=== PATIENT | male | born 1945 | race Caucasian/White ===

== ENCOUNTER → 2017-09-26 15:01 | Outpatient (CLI) | payer MEDICARE, OTHER, SELFPAY ==
--- NOTE | 2017-09-26 15:12 | RAD_ITS ---
STUDY: X-RAY - ABDOMEN/PELVIS REASON FOR EXAM: Male, 72 years old. Lower abdominal pain TECHNIQUE: 4 views COMPARISON: None. FINDINGS: Normal visualized lung bases. There is an unremarkable bowel gas pattern. There is no demonstrated free abdominal air. The visualized liver, spleen and kidneys are grossly normal in size and morphology. Normal soft tissue structures. Mild degenerative vertebral changes. RAD/Abd Inc Decub and/or Erect IMPRESSION: Normal x-ray examination of the abdomen and pelvis. Electronically Signed: Alek Martinez DO at 23:54 EST Tel [phone], Service support ,
== END ==
PROVIDERS: Family Provider Internal Medicine; PCP Internal Medicine; Visit Provider Nurse Practitioner Gerontology
DX: R10.30 Lower abdominal pain, unspecified (principal)
CPT/HCPCS: 74019

== ENCOUNTER → 2018-11-30 15:56 | Outpatient (CLI) | payer MEDICARE, OTHER, SELFPAY ==
[2016-03-17 15:22] VITALS: BMI 31.6
--- NOTE | 2018-11-30 12:16 | COLBX_PTH ---
PATIENT: CHASE YOUNG LOC: [facility] U#:[id number] AGE/SX: 80/M ROOM: RE11/30/[address]: Dr. Silverio Castillo MD : 1945 BED: DIS: SPEC #: [id number] RECD: 11/30/18 15:20 STATUS: MONCHO DEL #: [id number] CORDELIA: 11/30/18 12:[address]: Silverio Castillo DEPT: SURGICAL PATHOLOGY RECD BY: Juan Carlos Fontana ENTERED: 12/03/18 09:17 SP TYPE: COLON BX MEAGAN DR: Dr. Yumiko Clark, [facility] Tissues: A - Sigmoid colon biopsy B - Ascending colon Procedures: Surgery Specimen Level IV HEADER OPERATION: Colonoscopy with polypectomy PRE-OP DIAGNOSIS: History colon polyps TISSUE SUBMITTED: A - Sigmoid polyp 30 cm, rule out adenoma, B - Mid ascending colon polyps, rule out adenoma MICROSCOPIC DIAGNOSIS A. Sigmoid polyp, 30 cm, polypectomy: Tubular adenoma. B. Mid ascending colon polyps, polypectomy: Fragments of tubular adenoma. JOHN:ebenezer 12/04/18 MICROSCOPIC DESCRIPTION Slides are reviewed. GROSS DESCRIPTION A - Received in fixative is one container labeled with the patient's name and designated sigmoid polyp at 30 cm. The specimen consists of a guzman-pink polyp measuring 0.5 x 0.5 x 0.3 cm. The specimen is totally submitted in one cassette. B - Received in fixative is one container labeled with the patient's name and designated mid ascending colon polyp. The specimen consists of multiple irregular fragments of light guzman soft tissue that in aggregate measure 0.6 x 0.3 x 0.1 cm. The specimen is totally submitted in one cassette. / JOHN:ebenezer 12/03/18 TC:[address] [facility]: [id number] x2
== END ==
PROVIDERS: Family Provider Internal Medicine; PCP Internal Medicine; Referring Provider Internal Medicine Gastroenterology; Visit Provider Internal Medicine Gastroenterology
DX: Z86.010 Personal history of colon polyps (principal)
CPT/HCPCS: 88305

== ENCOUNTER → 2018-12-12 16:15 | Outpatient (CLI) | payer MEDICARE, OTHER, SELFPAY ==
[2018-12-12 17:37] LABS: Absolute Lymphocyte Count 1.15 X10^3/ul (0.83-4.51); Absolute Neutrophil Count 3.8 X10^3/uL (2.0-7.7); Basophil# 0.02 X10^3/uL; Basophil% 0.3 % (0-1); Eosinophil# 0.09 X10^3/uL; Eosinophils% 1.6 % (0-5); Hematocrit 40.8 % (40-54); Hemoglobin 13.7 g/dl (13.0-16.5); Lymphocyte # 1.15 X10^3/ul (4.0); Lymphocyte % 19.9 % (19-41); Mean Corp Hgb Conc 33.6 g/gl (32-36); Mean Corpuscular Hgb 29.8 pg (27.0-32.0); Mean Corpuscular Volume 88.9 fL (80-94); Monocyte# 0.67 X10^3/uL; Monocyte% 11.6 % (0-10); Neutrophil # 3.83 X10^3/uL (2.7-7.7); Neutrophil % 66.4 % (47-70); Platelet Count 246 K/mm3 (150-450); RBC Distribution Width CV 14.5 % (11.6-14.6); RBC Distribution Width SD 46.6 fl (35.1-43.9); Red Blood Count 4.59 M/mm3 (4.6-6.2); White Blood Count 5.8 K/mm3 (4.4-11.0)
[2018-12-12 18:03] LABS: POSITIVE COUNT NO; POSITIVE DIFFERENTIAL NO; POSITIVE MORPHOLOGY NO
== END ==
PROVIDERS: Family Provider Internal Medicine; PCP Internal Medicine; Referring Provider Internal Medicine; Visit Provider Internal Medicine
DX: D73.5 Infarction of spleen (principal)
CPT/HCPCS: 36415; 85025

== ENCOUNTER → 2018-12-14 15:33 | Outpatient (CLI) | payer MEDICARE, OTHER, SELFPAY ==
[2016-03-17 15:22] VITALS: BMI 31.6
--- NOTE | 2018-12-14 | IMM_PTH ---
PATIENT: CHASE YOUNG LOC: [facility] U#:[id number] AGE/SX: 80/M ROOM: RE12/14/[address]: Dr. Silverio Castillo MD : 1945 BED: DIS: SPEC #: [id number] RECD: 12/18/18 12:21 STATUS: MONCHO DEL #: [id number] CORDELIA: 12/14/18 00:[address]: Silverio Castillo DEPT: IMMUNOHISTOCHEMISTRY RECD BY: Zoey Rain ENTERED: 12/18/18 12:22 SP TYPE: IMMUNO OTHR DR: Dr. Yumiko Clark, DO Tissues: Stomach, NOS Procedures: H Pylori (initial) PHYSICIAN & INSTITUTION [place] [address] SPECIMEN INFORMATION: Tissue Source: Gastric antrum body Clinical Info: GERD Specimen Number: [id number] CPT code: 27992 METHODOLOGY: Deparaffinized sections of prefer/formalin-fixed tissue or PAP/DQ stained slides are incubated with monoclonal/polyclonal antibodies/oligonucleotide probes. Localization is made via biotin free immunoperoxidase method. Appropriate controls are performed and reacted as expected. Results on target cell population are indicated in the following table: RESULTS: ANTIBODY / CLONE RESULT H Pylori (polyclonal) positive These tests were developed and their performance characteristics determined by [facility]. They may not have been cleared or approved by the U.S. Food and Drug Administration. The FDA has determined that such clearance or approval is not necessary. INTERPRETATION: Gastric antrum/body, biopsy: Positive for abundant Helicobacter pylori organisms. AM:ebenezer 12/19/18
--- NOTE | 2018-12-14 08:18 | EGD_PTH ---
PATIENT: CHASE YOUNG LOC: [facility] U#:[id number] AGE/SX: 80/M ROOM: RE12/14/[address]: Dr. Silverio Castillo MD : 1945 BED: DIS: SPEC #: [id number] RECD: 12/14/18 15:21 STATUS: MONCHO DEL #: [id number] CORDELIA: 12/14/18 08:[address]: Silverio Castillo DEPT: SURGICAL PATHOLOGY RECD BY: Juan Carlos Fontana ENTERED: 12/17/18 10:23 SP TYPE: EGD BIOPSY OTHR DR: Dr. Yumiko Clark, DO [facility] Tissues: Gastric mucous membrane Procedures: Surgery Specimen Level IV HEADER OPERATION: EGD with biopsy PRE-OP DIAGNOSIS: GERD TISSUE SUBMITTED: Gastric antrum body MICROSCOPIC DIAGNOSIS Gastric antrum, biopsy: Chronic active gastritis, moderate to severe. Positive for abundant Helicobacter pylori organisms. See comment. AM:ebenezer 12/18/18 COMMENT The results of immunohistochemistry for Helicobacter pylori are reported separately ([id number]) and support the above diagnosis. MICROSCOPIC DESCRIPTION Slides are reviewed. GROSS DESCRIPTION Received in fixative is one container labeled with the patient's name and designated gastric antrum and body. The specimen consists of multiple irregular fragments of light guzman soft tissue that in aggregate measure 0.6 x 0.5 x 0.1 cm. The specimen is totally submitted in one cassette. / SJ:ebenezer 12/17/18 TC:3 CPT: 90785
== END ==
PROVIDERS: Family Provider Internal Medicine; PCP Internal Medicine; Referring Provider Internal Medicine Gastroenterology; Visit Provider Internal Medicine Gastroenterology
DX: K21.9 Gastro-esophageal reflux disease without esophagitis (principal)
CPT/HCPCS: 88305; 88342

== ENCOUNTER → 2020-04-27 | Outpatient (CLI) | payer MEDICARE, OTHER, SELFPAY ==
[2016-03-17 15:22] VITALS: BMI 31.6
--- NOTE | 2020-04-27 | IMM_PTH ---
PATIENT: CHASE YOUNG LOC: [facility] U#:[id number] AGE/SX: 74/M ROOM: RE04/27/[address]: Dr. Seb Borges MD : 1945 BED: DIS: 04/27/2020 SPEC #: [id number] RECD: 04/29/20 13:21 STATUS: MONCHO REIsaac #: [id number] CORDELIA: 04/27/20 00:[address]: Seb Borges DEPT: IMMUNOHISTOCHEMISTRY RECD BY: Zoey Rain Tissues: A - PROSTATE RIGHT Procedures: P40 (add) 34BE12 (initial) PHYSICIAN & INSTITUTION [place] [address] SPECIMEN INFORMATION: Tissue Source: A - Right prostate, apex, core biopsy Clinical Info: Elevated PSA Specimen Number: [id number] CPT code: 38282, 85034 METHODOLOGY: Deparaffinized sections of prefer/formalin-fixed tissue or PAP/DQ stained slides are incubated with monoclonal/polyclonal antibodies/oligonucleotide probes. Localization is made via biotin free immunoperoxidase method. Appropriate controls are performed and reacted as expected. Results on target cell population are indicated in the following table: RESULTS: ANTIBODY / CLONE RESULT Block A P40 (BC28) positive 34BE12 (34BE12) positive These tests were developed and their performance characteristics determined by [facility]. They may not have been cleared or approved by the U.S. Food and Drug Administration. The FDA has determined that such clearance or approval is not necessary. The above immunohistochemical/dualISH markers are ordered and reviewed by the Pathologist. INTERPRETATION: A. Right prostate, apex, core biopsy: Benign prostatic tissue. AM:ebenezer 04/30/20
--- NOTE | 2020-04-27 15:15 | PROSBIL_PTH ---
PATIENT: CHASE YOUNG LOC: [facility] U#:[id number] AGE/SX: 74/M ROOM: RE04/27/[address]: Dr. Seb Borges MD : 1945 BED: DIS: 04/27/2020 SPEC #: [id number] RECD: 04/27/20 17:40 STATUS: MONCHO DEL #: [id number] CORDELIA: 04/27/20 15:[address]: Seb Borges DEPT: SURGICAL PATHOLOGY RECD BY: Juan Carlos Fontana Tissues: A - PROSTATE RIGHT B - PROSTATE RIGHT C - PROSTATE RIGHT D - PROSTATE LEFT E - PROSTATE LEFT F - PROSTATE LEFT Procedures: PROSTATE BX HEADER OPERATION: Prostate biopsy PRE-OP DIAGNOSIS: Elevated PSA TISSUE SUBMITTED: A - Right apex, B - Right mid, C - Right base, D - Left apex, E - Left mid, F - Left base MICROSCOPIC DIAGNOSIS A. Right prostate, apex, core biopsy: Benign prostatic tissue. See comment. B. Right prostate, mid, core biopsy: Focal glandular atrophy. Chronic inflammation. C. Right prostate, base, core biopsy: Glandular atrophy and mild chronic inflammation. D. Left prostate, apex, core biopsy: Focal glandular atrophy and minimal chronic inflammation. E. Left prostate, mid, core biopsy: Chronic inflammation and focal glandular atrophy. F. Left prostate, base, core biopsy: Focal glandular atrophy and mild chronic inflammation. AM:ebenezer 04/29/20 COMMENT A. Immunohistochemistry ([id number]) supports the above diagnosis. MICROSCOPIC DESCRIPTION Slides are reviewed. GROSS DESCRIPTION A - Received is one container designated prostate, right apex. The specimen consists of two elongated fragments of light guzman-white soft tissue each measuring 1.5 cm in length and 0.1 cm in diameter. The specimen is totally submitted in one cassette. B - Received is one container designated prostate, right mid. The specimen consists of two elongated fragments of light guzman-white soft tissue each measuring 1.5 cm in length and 0.1 cm in diameter. The specimen is totally submitted in one cassette. C - Received is one container designated prostate, right base. The specimen consists of two elongated fragments of light guzman-white soft tissue each measuring 1.5 cm in length and 0.1 cm in diameter. The specimen is totally submitted in one cassette. D - Received is one container designated prostate, left apex. The specimen consists of two elongated fragments of light guzman-white soft tissue each measuring 1.3 cm in length and 0.1 cm in diameter. The specimen is totally submitted in one cassette. E - Received is one container designated prostate, left mid. The specimen consists of two elongated fragments of light guzman-white soft tissue each measuring 1.8 cm in length and 0.1 cm in diameter. The specimen is totally submitted in one cassette. F - Received is one container designated prostate, left base. The specimen consists of two elongated fragments of light guzman-white soft tissue each measuring 1.7 cm in length and 0.1 cm in diameter. The specimen is totally submitted in one cassette. / SJ:rg 04/28/20 TC:3 CPT: G0146
== END | disposition home or self-care (01) ==
LOC: LABSPEC 04-28 07:30
PROVIDERS: Referring Provider Urology; Visit Provider Urology
DX: R97.20 Elevated prostate specific antigen [PSA] (principal)
CPT/HCPCS: 88305; 88341; 88342; G0416

== ENCOUNTER → 2021-05-18 14:29 | Outpatient (CLI) | payer MEDICARE, OTHER, SELFPAY ==
[2021-05-18 15:37] LABS: PSA,Total- Diagnostic 2.64 ng/mL (0.0-4.0)
== END ==
PROVIDERS: PCP Internal Medicine; Referring Provider Urology; Visit Provider Urology
DX: R97.20 Elevated prostate specific antigen [PSA] (principal)
CPT/HCPCS: 36415; 84153

== ENCOUNTER → 2022-06-02 | Outpatient (CLI) | payer MEDICARE, OTHER, SELFPAY ==
[2022-06-02 11:26] LABS: PSA,Total- Diagnostic 2.27 ng/mL (0.0-4.0)
== END | disposition home or self-care (01) ==
LOC: LAB 10:16
PROVIDERS: PCP Internal Medicine; Visit Provider Urology
DX: R97.20 Elevated prostate specific antigen [PSA] (principal)
CPT/HCPCS: 36415; 84153

== ENCOUNTER 2022-07-31 09:16 | Emergency (ER) | payer MEDICARE, OTHER, SELFPAY ==
[2022-07-31 09:20] VITALS: BP 161/79; PULSE 79; RESP 16; TEMP 36.1; O2SAT 95; BMI 26.5
--- NOTE | 2022-07-31 10:12 | EX.ED.DYSGE1 ---
HPI History of Present Illness Chief Complaint: Dizziness Informant: patient Onset/Context/Timing Onset: Today Context: Sudden Onset Timing: Continuous Quality: Spinning Location: Head Worsened by: Movement Relieved by: Remaining still Narrative Narrative: Patient present with dizziness, nausea, and vomiting that began this morning when he woke up. Patient states he feels like things are spinning. Patient states it is worse with movement of his head. Patient admits to nausea and vomiting. Patient states he is unable to keep anything down. Patient states it began suddenly this morning. Patient states this feels similar to prior episodes of vertigo. Patient admits to some sweats and subjective chills. Patient denies any fevers. Patient denies any hearing changes or tinnitus. [facility] Medical History (Updated 07/31/22 @ 11:[address] Lino Preciado DO) BPH (benign prostatic hyperplasia) Vertigo Home Medications tamsulosin 0.4 mg capsule 0.4 mg PO DAILY 14 days 03/17/16 [Rx Last Taken Unknown] diazepam 2 mg tablet 2 mg PO TID PRN PRN Vertigo #10 TABLETS 07/31/22 [Rx Last Taken Unknown] finasteride 5 mg tablet 5 mg PO DAILY 07/31/22 [History Last Taken Unknown] Allergy/AdvReac Type Severity Reaction Status Date / Time No Known Allergies Allergy Verified 07/31/22 09:19 Surgical History no surgical history no surgical history Social History Smoking Status: Never smoker ROS [facility] ED Constitutional Constitutional ED: Reports chills, subjective and sweats; Denies fever(s) Eyes Eyes: Denies blurry vision or change in vision ENT ENT ED: Denies rhinorrhea or sore throat Cardiovascular Cardiovascular: Denies chest pain or palpitations Respiratory/Chest Respiratory/Chest: Denies cough or dyspnea Gastrointestinal Gastrointestinal: Reports nausea and vomiting Genitourinary Genitourinary ED: Reports urinary frequency; Denies dysuria or hematuria Musculoskeletal Musculoskeletal: Denies back pain or neck pain Integumentary Denies abscess or rash Neurologic Neurologic: Denies headache(s) or weakness Allergic/Immunologic Allergic/Immunologic ED: Denies mouth swelling or urticaria EXAM Physical Exam Const Vital Signs: 07/31/22 09:20 07/31/22 09:24 07/31/22 10:28 Temperature 97.0 F L Temperature Source Temporal Pulse Rate 79 68 Respiratory Rate 16 18 Respiratory Pattern Normal Blood Pressure 161/79 H 168/83 H Blood Pressure Mean 106 111 Pulse Ox 95 95 Oxygen Delivery Method Room Air Room Air Positive well nourished and well developed General Appearance ED: well developed and NAD HEENT Reports moist mucous membranes Eyes PERRL and EOMs intact bilaterally Eyes Narrative: There is mild nystagmus with lateral gaze to the left. Neck supple and no JVD Resp normal respiratory effort and clear to auscultation bilaterally Cardio regular rate, regular rhythm and no murmurs GI normal to inspection, nondistended, normoactive bowel sounds and non-tender Palpation: soft Extremity normal to inspection General Extremety ED: Negative for edema or tenderness General Extremity: Negative for edema Neuro oriented x3, CN's II-XII intact bilaterally and no sensory deficits noted Neuro Narrative: There is a positive Jefferson-Hallpike maneuver with his head turned to the left. Sensorium / Orientation: alert Motor Exam: strength 5/5 throughout Psych mental status grossly normal Skin no rashes or lesions noted MDM MDM MDM Narrative Medical decision making narrative: Patient was given IV fluids and Zofran. Patient was given a dose of Valium here. CT scan of the brain was obtained. There is no acute intracranial abnormality. This was interpreted by the radiologist and reviewed by myself. CBC was within normal limits. Comprehensive metabolic profile was within normal limits. Patient is feeling better on reevaluation. Patient states she was able to sit up without any dizziness. Patient was given a prescription for Valium to take as needed. Patient was advised that this is most likely vertigo. Patient was instructed to follow-up with his primary care physician in 5 to 7 days. Patient understood and was agreeable with the plan. All questions were answered. Lab Data Attestation: I reviewed the patient's lab results. Labs: Laboratory Results - last 24 hr 07/31/22 07/31/22 09:30 09:30 WBC 8.5 RBC 4.92 Hgb 14.9 Hct 44.4 MCV 90.2 MCH 30.3 MCHC 33.6 RDW Std Deviation 45.4 H RDW Coeff of Reid 13.7 Plt Count 181 MPV 9.7 Immature Gran % (Auto) 0.500 Neut % (Auto) 83.6 H Lymph % (Auto) 10.2 L [place] % (Auto) 4.6 Eos % (Auto) 0.7 Baso % (Auto) 0.4 Absolute Neuts (auto) 7.1 Absolute Lymphs (auto) 0.87 Nucleated RBC % 0 Sodium 140 Potassium 3.7 Chloride 105 Carbon Dioxide 28.0 Anion Gap 7 BUN 16 Creatinine 1.07 Estim Creat Clear Calc 54.91 Est GFR (MDRD) Af Amer 86 Est GFR (MDRD) Non-Af 71 BUN/Creatinine Ratio 15.0 Glucose 144 H Calcium 9.1 Total Bilirubin 0.40 AST 19 ALT 39 Alkaline Phosphatase 55 Total Protein 6.9 Albumin 3.8 Globulin 3.1 Albumin/Globulin Ratio 1.2 Radiography Diagnostic Testing: Clinical Impression(s) from Imaging Studies Brain CT 07/31/22 10:16 IMPRESSION: Mild atrophy. Areas of prior basal ganglia infarcts. No visualized acute hemorrhage infarct or edema. Electronically Signed: Gwendolyn Andre MD at 10:50 EST Reading Location ID and State: [facility] / [place] Tel , Service support , Discharge Plan Triage Chief Complaint: Dizziness ED Provider: Lino Preciado Dx/Rx/DC Orders Clinical Impression: Vertigo, Nausea and vomiting Instructions: ED Vertigo, Unspecified Prescriptions: New diazepam [diazepam] 2 mg tablet 2 mg PO TID PRN PRN (Reason: Vertigo) Qty: 10 0RF No Action tamsulosin 0.4 MG capsule 0.4 mg PO DAILY 14 Days 0RF finasteride 5 mg tablet 5 mg PO DAILY Label Comments: TAKE 1 TABLET BY MOUTH ONCE DAILY Primary Care Provider: Yumiko Clark Referrals: Yumiko Clark DO [Primary Care Provider] - 3-5 Days Disposition Disposition: Home, Self Care
--- NOTE | 2022-07-31 10:16 | CT_ITS ---
STUDY: CT BRAIN WITHOUT CONTRAST REASON FOR EXAM: Male, 77 years old. Vertigo RADIATION DOSAGE (If Supplied By Facility): CTDIvol = ( 44.99 ) mGy, DLP = ( 829.85 ) mGycm TECHNIQUE: Transaxial CT imaging of the brain was performed without administration of intravenous contrast material. Individualized dose optimization techniques were used for this CT. COMPARISON: No relevant priors. FINDINGS: Normal soft tissue structures. Normal calvarium. There is mild cerebral atrophy with widening of the extra-axial spaces and ventricular dilatation. There are a few areas of decreased attenuation within the white matter tracts of the supratentorial brain, consistent with microvascular disease changes. There is a Chronic appearing small Low-attenuation within the left side basal ganglia within the putamen. There is a chronic appearing right-sided caudate low attenuation. There is calcification in the right-sided basal ganglia. Findings consistent with prior ischemic change. Normal brainstem. There is low attenuation within the left-sided cerebellum digestive atrophy or prior ischemic change. There is no intracranial hemorrhage. There are no findings of an acute ischemic infarction. Normal visualized paranasal sinuses. CT/Brain/Head without Contrast IMPRESSION: Mild atrophy. Areas of prior basal ganglia infarcts. No visualized acute hemorrhage infarct or edema. Electronically Signed: Gwenodlyn Andre MD at 10:50 EST Reading Location ID and State: [facility] / [place] Tel , Service support ,
[2022-07-31 10:24] LABS: Absolute Lymphocyte Count 0.87 X10^3/uL (0.83-4.51); Absolute Neutrophil Count 7.1 X10^3/uL (2.0-7.7); Basophil# 0.03 X10^3/uL; Basophil% 0.4 % (0-1); Eosinophil# 0.06 X10^3/uL; Eosinophils% 0.7 % (0-5); Hematocrit 44.4 % (40-54); Hemoglobin 14.9 g/dL (13.0-16.5); Lymphocyte # 0.87 X10^3/ul (0.83-4.51); Lymphocyte % 10.2 % (19-41); Mean Corp Hgb Conc 33.6 g/dL (32-36); Mean Corpuscular Hgb 30.3 pg (27.0-32.0); Mean Corpuscular Volume 90.2 fL (80-94); Mean Platelet Vol. 9.7 fl (6.2-12.0); Monocyte# 0.39 X10^3/uL; Monocyte% 4.6 % (0-10); NRBC Flagged by Analyzer 0 % (0-5); Neutrophil # 7.11 X10^3/uL (2.7-7.7); Neutrophil % 83.6 % (47-70); Platelet Count 181 K/mm3 (150-450); RBC Distribution Width CV 13.7 % (11.6-14.6); RBC Distribution Width SD 45.4 fl (35.1-43.9); Red Blood Count 4.92 M/mm3 (4.6-6.2); White Blood Count 8.5 K/mm3 (4.4-11.0)
[2022-07-31] MEDS: Ondansetron 4 MG/2 ML Vial IV (10:27)
[2022-07-31] MEDS: diazePAM 5 MG Tablet 2.5 MG PO (10:27)
[2022-07-31] MEDS: 0.9% Normal Saline 1,000 ML 1000 ML IV (10:27)
[2022-07-31 10:28] VITALS: BP 168/83; PULSE 68; RESP 18; O2SAT 95
[2022-07-31 10:40] LABS: ALB/GLOB Ratio 1.2 RATIO (0.9-2.4); AST(SGOT) 19 U/L (15-37); Alanine Aminotransfer ALT/SGPT 39 U/L (16-61); Albumin, Serum 3.8 g/dL (3.2-5.0); Alkaline Phosphatase 55 U/L (45-117); Anion Gap 7 (5-15); BUN 16 mg/dL (7-18); Calcium,Total 9.1 mg/dL (8.5-10.1); Chloride 105 mmol/L (98-107); Creatinine, Serum 1.07 mg/dL (0.70-1.30); EST Glomerular Filtration Rate 71 mL/min (>60); Est Glom Filt Rate - Afr Amer 86 mL/min (>60); Estimated Creatinine Clearance 54.91 ml/min; Globulin 3.1 g/dL (2.2-4.2); Glucose 144 mg/dL (74-106); Potassium 3.7 mmol/L (3.5-5.1); Protein, Total 6.9 g/dL (6.4-8.2); Sodium Level 140 mmol/L (136-145)
[2022-07-31 12:17] VITALS: BP 119/71; PULSE 69
== END 2022-07-31 12:18 | disposition home or self-care (01) ==
PROVIDERS: Emergency Provider Emergency Medicine; PCP Internal Medicine; Visit Provider Emergency Medicine
DX: R11.2 Nausea with vomiting, unspecified (principal); R42 Dizziness and giddiness
CPT/HCPCS: 70450; 80053; 85025; 96361; 96374; 99285; J7030; A4216; J2405

== ENCOUNTER → 2023-06-22 | Outpatient (CLI) | payer MEDICARE, OTHER, SELFPAY ==
[2023-06-22 10:37] LABS: PSA,Total- Diagnostic 3.01 ng/mL (0.0-4.0)
== END | disposition home or self-care (01) ==
PROVIDERS: PCP Internal Medicine; Referring Provider Urology; Visit Provider Urology
DX: R97.20 Elevated prostate specific antigen [PSA] (principal)
CPT/HCPCS: 36415; 84153

== ENCOUNTER → 2023-12-06 | Outpatient (CLI) | payer MEDICARE, OTHER, SELFPAY ==
[2023-12-06 11:44] LABS: PSA,Total- Diagnostic 5.23 ng/mL (0.0-4.0)
== END | disposition home or self-care (01) ==
LOC: LAB 10:34
PROVIDERS: PCP Internal Medicine; Referring Provider Urology; Visit Provider Urology
DX: R97.20 Elevated prostate specific antigen [PSA] (principal)
CPT/HCPCS: 36415; 84153

== ENCOUNTER → 2023-12-07 | Outpatient (CLI) | payer MEDICARE, OTHER, SELFPAY | END | disposition home or self-care (01) | LOC: LABSPEC 15:58 | PROVIDERS: PCP Internal Medicine; Referring Provider Urology; Visit Provider Urology | DX: N30.00 Acute cystitis without hematuria (principal) | CPT/HCPCS: 87086 ==

== ENCOUNTER → 2024-01-04 | Outpatient (CLI) | payer MEDICARE, OTHER, SELFPAY ==
[2024-01-04 11:48] LABS: PSA,Total- Diagnostic 2.57 ng/mL (0.0-4.0)
== END | disposition home or self-care (01) ==
LOC: LAB 10:12
PROVIDERS: PCP Internal Medicine; Referring Provider Urology; Visit Provider Urology
DX: R97.20 Elevated prostate specific antigen [PSA] (principal)
CPT/HCPCS: 36415; 84153

== ENCOUNTER → 2024-04-16 | Outpatient (CLI) | payer MEDICARE, OTHER, SELFPAY ==
[2024-04-16 08:50] LABS: Cholesterol 235 mg/dL (200); Glucose 103 mg/dL (74-106); High Density Lipoprotein 60 mg/dL; Triglycerides 131 mg/dL; Very Low Density Lipoprotein 26 mg/dL (5-40)
[2024-04-16 13:53] LABS: Hemoglobin A1c 5.3 % (3.8-5.6)
== END | disposition home or self-care (01) ==
LOC: LAB 07:59
PROVIDERS: PCP Internal Medicine; Referring Provider Internal Medicine; Visit Provider Internal Medicine
DX: Z13.220 Encounter for screening for lipoid disorders (principal); R35.0 Frequency of micturition
CPT/HCPCS: 36415; 80061; 82947; 83036

== ENCOUNTER → 2024-12-14 | Outpatient (CLI) | payer MEDICARE, OTHER, SELFPAY ==
[2024-12-14 10:01] LABS: PSA,Total- Diagnostic 1.83 ng/mL (0.00-4.00)
== END | disposition home or self-care (01) ==
PROVIDERS: PCP Internal Medicine; Referring Provider Nurse Practitioner; Visit Provider Nurse Practitioner
DX: C61 Malignant neoplasm of prostate (principal)
CPT/HCPCS: 36415; 84153